=== PATIENT | male | born 1960 | race African-American/Black ===

== ENCOUNTER 2020-06-21 08:05 | Emergency (ER) | payer MEDICARE, MEDICAID ==
[~2020-06-21 08:05] MED LIST: BACTROBAN21 EX; CIPROFLOXACN500 MG PO; KENALOG15 G1 EX; NO MEDS; TRIAMCINOLON0.13 EX
[2020-06-21 10:21] LABS: IMMATURE GRANULOCYTES 0.6 % (0.0-5.0); MEAN CORPUSCULAR HGB 22.5 pG CALC (26.0-32.0); MEAN CORPUSCULAR HGB CONC 28.7 g/dL CAL (32.0-36.0); NEUT# 6.31 thou/uL (1.82-7.42); RED BLOOD COUNT 3.83 mill/uL (4.70-6.10); RED CELL DISTRI WIDTH 15.3 % (11.5-15.5)
[2020-06-21 10:22] LABS: HEMOGLOBIN 8.6 g/dl (14.0-18.0); MEAN CELL VOLUME 78.3 fL CALC (80.0-100.0)
[2020-06-21 10:42] LABS: ALKALINE PHOSPHATASE 142 u/l (38-126); ANION GAP 14 (6-22 (CALC)); BILIRUBIN, TOTAL 0.4 mg/dL (0.0-1.4); BUN 8 mg/dL (8-23); BUN/CREATININE RATIO 10 (12-20 (CALC)); CARBON DIOXIDE 25 mmol/l (22-30); CHLORIDE 101 mmol/l (95-108); CREATININE 0.9 mg/dL (0.7-1.3); GFR > 60 ML/MIN (>=60 (CALC)); GFR FOR AFR.AMER. > 60 ML/MIN (>=60 (CALC)); POTASSIUM 3.6 mmol/l (3.5-5.1); SGOT/AST 18 u/l (19-48); SODIUM 136 mmol/l (137-146); TOTAL PROTEIN 8.3 g/dL (6.3-8.2)
[2020-06-21 12:44] LABS: PROTHROMBIN TIME 10.5 SECONDS (9.0-12.5)
[2020-06-21 13:41] VITALS: BP 115/75
== END 2020-06-21 13:30 | disposition short-term general hospital (02) ==
LOC: ED 08:05
PROVIDERS: Emergency Medicine
DX: I82.422 Acute embolism and thrombosis of left iliac vein (principal); I82.412 Acute embolism and thrombosis of left femoral vein; I82.442 Acute embolism and thrombosis of left tibial vein; I26.99 Other pulmonary embolism without acute cor pulmonale; F79 Unspecified intellectual disabilities; Z87.820 Personal history of traumatic brain injury
CPT/HCPCS: J1644; Q9967

== ENCOUNTER 2020-06-26 19:54 | Emergency (ER) | payer MEDICARE, MEDICAID ==
[~2020-06-26] VITALS: Ht 162.6 cm; Wt 60.0 kg
[2020-06-26 20:28] VITALS: BP 141/78
[2020-06-26] MEDS ORDERED: TAMSULOSIN0.4 MG PO (20:31)
[2020-06-26] MEDS ORDERED: ELIQUIS5 MG PO (20:31)
[2020-06-26] MEDS ORDERED: FEROSUL325 MG PO (20:33)
== END 2020-06-26 20:34 | disposition home or self-care (01) ==
LOC: ED 19:54
DX: R60.0 Localized edema (principal); Z86.711 Personal history of pulmonary embolism; Z79.01 Long term (current) use of anticoagulants; Z87.820 Personal history of traumatic brain injury

== ENCOUNTER 2021-09-21 11:26 | Observation (INO) | payer MEDICARE, MEDICAID ==
[~2021-09-21] VITALS: Ht 162.6 cm; Wt 56.8 kg
[~2021-09-21 11:26] MED LIST changes: +ELIQUIS5 MG PO; +FEROSUL325 MG PO; +TAMSULOSIN0.4 MG PO
--- NOTE | 2021-09-21 11:27 | NUR ---
PT TO TRIAGE ROOM AT THIS TIME
[2021-09-21 12:30] LABS: HEMATOCRIT 28.6 % (39.0-50.0); HEMOGLOBIN 8.1 g/dl (14.0-18.0); IMMATURE GRANULOCYTES 0.4 % (0.0-5.0); MEAN CELL VOLUME 74.3 fL CALC (80.0-100.0); MEAN CORPUSCULAR HGB CONC 28.3 g/dL CAL (32.0-36.0); NEUT# 5.5 thou/uL (1.82-7.42); RED BLOOD COUNT 3.85 mill/uL (4.70-6.10); RED CELL DISTRI WIDTH 18.5 % (11.5-15.5)
[2021-09-21 12:34] LABS: ALKALINE PHOSPHATASE 128 u/l (38-126); ANION GAP 10 (6-22 (CALC)); BUN 10 mg/dL (8-23); BUN/CREATININE RATIO 11 (12-20 (CALC)); CARBON DIOXIDE 27 mmol/l (22-30); CHLORIDE 108 mmol/l (95-108); CREATININE 0.9 mg/dL (0.7-1.3); GFR FOR AFR.AMER. > 60 ML/MIN (>=60 (CALC)); GFR OTHER RACES > 60 ML/MIN (>=60 (CALC)); POTASSIUM 3.9 mmol/l (3.5-5.1); SGOT/AST 27 u/l (19-48); SODIUM 142 mmol/l (137-146); TOTAL PROTEIN 7.4 g/dL (6.3-8.2)
[2021-09-21 12:42] LABS: ALBUMIN 3.4 g/dL (3.2-5.0); BILIRUBIN, TOTAL 0.1 mg/dL (0.0-1.4)
--- NOTE | 2021-09-21 13:24 | NUR ---
PT IN ROOM ON MONITOR AWAITING ADMISSION, WILL CONT TO [id number].
[2021-09-21 13:25] VITALS: BP 125/74
--- NOTE | 2021-09-21 13:37 | NUR ---
PT TO BE ADMITTED
[2021-09-21 14:00] VITALS: BP 106/70
[2021-09-21 15:00] VITALS: BP 110/72
[2021-09-21 16:00] VITALS: BP 112/75
--- NOTE | 2021-09-21 16:04 | NUR ---
PT PENDING ADMISSION.
--- NOTE | 2021-09-21 16:12 | NUR ---
REPORT CALLED TO BRITT JAMES.
[2021-09-21 16:30] VITALS: BP 114/73
--- NOTE | 2021-09-21 16:38 | NUR ---
Admission Note Report Given to: BRITT JAMES Transported by: Wheelchair X Stretcher Transported with: X Nurse Transporter X Patent IV O2 X Flour Inspector Location: ICU X MS2
--- NOTE | 2021-09-21 17:53 | NUR ---
RECEIVE PAT[facility] PATIENT WITH COGNITIVE DEFICIT. I CALL FAMILY MEMBER AND COMPLETE ADMISSION. PT COVID POSITIVE IS EDUCATED ABOUD ADMISSION AND MEDICATIONS BUT DOES NOT SHOW UNDERSTAND. FALL AND SAFETY PRECAUTIONS IN PLACE. CALL LIGHT WITHIN REACH.
--- NOTE | 2021-09-21 19:30 | NUR ---
PATIENT RESTING IN BED AT THIS TIME. AWAKE ALERT AND ORIENTED TO PERSON AND BIRTHDATE ONLY. FLAT AFFECT. WATCHING TV. IV SITE TO [facility] IS INTACT AND HEALTHY AT THIS TIME. TELE MONITOR IN PLACE-LAST READING WAS SR-75. PATIENT ON ISOLATION FOR COVID. HERE FOR DVT OF RLE. SIDERAILS ARE PADDED FOR SEIZURE PRECAUTIONS. ON ISOLATION FOR COVID. SAFETY PRECAUTIONS REINFORCED. CALL LIGHT IN REACH. WILL CONT TO MONITOR.
[2021-09-21 19:46] VITALS: BP 116/70
[2021-09-22] VITALS (7 sets, daily range): BP systolic 95–131; BP diastolic 52–81
--- NOTE | 2021-09-22 00:09 | NUR ---
RESTING IN BED AT THIS TIME WITH EYES CLOSED. RESPS ARE EVEN AND UNLABORED. TELE MONITOR IN PLACE. SALINE LOCK TO RAC INTACT. SIDERAILS PADDED FOR SEIZURE PRECAUTIONS. CALL LIGHT IN REACH. WILL CONT TO MONTIOR.
--- NOTE | 2021-09-22 04:23 | NUR ---
PATIENT RESTING IN BED WITH EYES CLOSED. RESPS ARE EVEN AND UN LABORED. TELE MONITOR IN PLACE. IV SITE TO RAC INTACT. CALL LIGHT IN REACH. WILL CONT TO MONITOR.
[2021-09-22 06:51] LABS: HEMATOCRIT 27.2 % (39.0-50.0); HEMOGLOBIN 7.8 g/dl (14.0-18.0); MEAN CELL VOLUME 74.3 fL CALC (80.0-100.0); MEAN CORPUSCULAR HGB 21.3 pG CALC (26.0-32.0); MEAN CORPUSCULAR HGB CONC 28.7 g/dL CAL (32.0-36.0); RED BLOOD COUNT 3.66 mill/uL (4.70-6.10); RED CELL DISTRI WIDTH 18.6 % (11.5-15.5)
[2021-09-22 07:28] LABS: BUN 9 mg/dL (8-23); BUN/CREATININE RATIO 14 (12-20 (CALC)); CARBON DIOXIDE 25 mmol/l (22-30); CHLORIDE 108 mmol/l (95-108); CREATININE 0.6 mg/dL (0.7-1.3); GFR FOR AFR.AMER. > 60 ML/MIN (>=60 (CALC)); GFR OTHER RACES > 60 ML/MIN (>=60 (CALC)); MAGNESIUM 2.3 mg/dL (1.6-2.3); SODIUM 140 mmol/l (137-146)
--- NOTE | 2021-09-22 07:50 | NUR ---
PT RESTING IN SEMI FOWLERS POSITION. PT A/OX2 AND MENTALLY DELAYED. ASSESSMENT COMPLETED. RESPIRATIONS EVEN AND UNLABORED ON ROOM AIR. LUNG SOUNDS DIMINISHED. HEART RHYTHM NORMAL WITH TELE IN PLACE. BOWEL SOUNDS ACTIVE.#20G RAC FLUSHED, SITE PATENT. SKIN INTACT. PT DENIES OF ANY ADDITIONAL NEEDS AT THSI TIME. ALL SAFTEY PRECAUTION ARE IN PLACE WITH CALL LIGHT IN REACH.SEIZURE PRECAUTIONS IN PLACE. BED ALARM ACTIVE.
[2021-09-22 07:54] LABS: ANION GAP 12 (6-22 (CALC)); POTASSIUM 4.7 mmol/l (3.5-5.1)
[2021-09-22] MEDS ORDERED: PHENYTOIN EX100 M1 PO (10:25)
[2021-09-22] MEDS ORDERED: LEVETIRACETAM500 MG PO (10:25)
--- NOTE | 2021-09-22 12:40 | NUR ---
PT EATING LUNCH IN SEMI FOWLERS POSITION. RESPIRATIONS EVEN AND UNLABORED ON ROOM AIR. #20G RAC DISLODGED. #20G LAC STARTED, SITE PATENT. TELE MONITORING IN PLACE. PT DENIES OF ANY DISCOMFORTS AT THIS TIME. ALL SAFTEY PRECAUTIONS ARE IN PLACE WITH CALL LIGHT IN REACH
--- NOTE | 2021-09-22 16:06 | NUR ---
MORTGAGE COLLECTOR ASSISTED PT WITH CLEANING UP WHILE IN CHAIR. NEW LINEN PROVIDED. TELE MONITORING IN PLACE. #20G LAC PATENT. PT ASSISTED BACK INTO BED. PT DENIES OF ANY ADDITIONAL NEEDS. ALL SAFETY PRECAUTIONS ARE IN PLACE WITH CALL LIGHT IN REACH. BED ALARM ACTIVE.
--- NOTE | 2021-09-22 20:00 | NUR ---
PATIENT RESTING IN BED WATCHING TV. AWAKE ALERT AND ORIENTED TO PERSON AND PLACE-PATIENT DOES KNOW HIS BIRTHDATE. NO COMPLAINTS AT THIS TIME. TELE MONITOR IN PLACE-LAST READING WAS SR-90.IV SITE TO LEFT AC INTACT AND FLUSHES FREELY. BED ALARM IN PLACE FOR PATIENT SAFETY. SAFETY PRECAUTIONS REINFORCED. CALL LIGHT IN REACH. WILL CONT TO MONITOR.
--- NOTE | 2021-09-22 23:43 | NUR ---
RESTING IN BED WITH EYES CLOSED. RESPS ARE EVEN AND UNLABORED. TELE MONITOR IN PLACE. ON ISOLATION FOR COVID. BED ALARM IN PLACE FOR PATIENT SAFETY. CALL LIGHT IN REACH. WILL CONT TO MONITOR.
[2021-09-23 00:11] VITALS: BP 103/69
--- NOTE | 2021-09-23 02:27 | NUR ---
APPEARS SLEEPING WITH EYES CLOSED. RESPS ARE EVEN AND UNLABORED. TELE MONITOR IN PLACE. BED ALARM IN PLACE FOR PATIENT SAFETY. CALL LIGHT IN REACH. WILL CONT TO MONITOR.
[2021-09-23 04:49] VITALS: BP 122/74
--- NOTE | 2021-09-23 05:54 | NUR ---
PATIENT APPEARS SLEEPING WITH EYES CLOSED. RESPS ARE EVEN AND UNLABORED. TELE MONITOR IN PLACE-LAST READING WAS SR-76. SALINE LOCK TO LEFT AC INTACT. BED ALARM IN PLACE FOR PATIENT SAFETY. CALL LIGHT IN REACH. WILL CONT TO MONITOR.
[2021-09-23 06:22] VITALS: BP 116/68
[2021-09-23 06:49] LABS: HEMOGLOBIN 7.4 g/dl (14.0-18.0); IMMATURE GRANULOCYTES 0.3 % (0.0-5.0); MEAN CELL VOLUME 74.3 fL CALC (80.0-100.0); MEAN CORPUSCULAR HGB 21.1 pG CALC (26.0-32.0); MEAN CORPUSCULAR HGB CONC 28.5 g/dL CAL (32.0-36.0); NEUT# 3.95 thou/uL (1.82-7.42); RED BLOOD COUNT 3.5 mill/uL (4.70-6.10); RED CELL DISTRI WIDTH 18.6 % (11.5-15.5)
--- NOTE | 2021-09-23 07:00 | NUR ---
PT RESTING WATCHING TV. STATES IN NO PAIN. BREATHING EVEN AN DUNLABORED. ON RA. NO DISTRESS NOTED. TELE INPLACE, CONTINOUS MONITORING PER ED. FALL/SAFTEY PRECAUTION IN PLACE. CALL LIGHTWITHIN REACH
[2021-09-23 07:21] LABS: ANION GAP 11 (6-22 (CALC)); BUN 10 mg/dL (8-23); BUN/CREATININE RATIO 12 (12-20 (CALC)); CARBON DIOXIDE 26 mmol/l (22-30); CHLORIDE 107 mmol/l (95-108); CREATININE 0.8 mg/dL (0.7-1.3); GFR FOR AFR.AMER. > 60 ML/MIN (>=60 (CALC)); GFR OTHER RACES > 60 ML/MIN (>=60 (CALC)); MAGNESIUM 2.1 mg/dL (1.6-2.3); POTASSIUM 4.7 mmol/l (3.5-5.1); SODIUM 139 mmol/l (137-146)
--- NOTE | 2021-09-23 09:30 | NUR ---
PT RESTING WATCHING TV. PT IS ALERT TO PERSON ABLE TO TELL ME FULL NAME BUT UNABLE TO SAY PLACE/TIME. IV 20G RAC FLUSHED. ASSESSMENT ALLOWED. BREATHING EVEN AND UNLABORED. TELE MONITOR INPLACE. CONTINOUS MONITORING PER ED. ABBLE TO TAKE PO MEDCATIONS. FALL/SAFTEY PRECAUTION IN PLACE. CALL LIGHT WITHIN REACH.
[2021-09-23 11:04] VITALS: BP 121/66
--- NOTE | 2021-09-23 13:00 | NUR ---
PT RESTING IN ROOM WATCHING TV. NO DISTRESS NOTED. IV PATENT. TELE MONTIOR IN PLACE. CONTINOUS MONITORING PER ED FALL/SAFTEY PRECAUTION IN PLACE. CALL LIGHT WITHIN REACH
[2021-09-23 15:48] VITALS: BP 92/49
[2021-09-23 18:29] LABS: HEMATOCRIT 24.9 % (39.0-50.0); HEMOGLOBIN 7.2 g/dl (14.0-18.0)
--- NOTE | 2021-09-23 19:30 | NUR ---
PATIENT RESTING IN BED AT THIS TIME WATCHING TV. AWAKE ALERT AND ORIENTED TO PERSON AND PLACE. PATIENT FOR TRANFER TO [facility] FOR GI BLEED AND IVF FILTER. AWAITING CALL BACK FROM [facility] CALL CENTER FOR PATIENT ROOM. PATIENT WITH PROTONIX GTT IN PLACE VIA LEFT AC SITE AT 10CC/HR. SITE IS HEALTHY AT THIS TIME. TELE MONITOR IN PLACE-LAST READING SR-80'S. PATIENT ON ISOLATION FOR COVID. O2 SATS ARE 99% ON RA. PATIENT ASSISTED TO THE BR TO VOID USING THE WALKER-PATIENT IS VERY UNSTEADY ON HIS FEET. ASSISTED BACK TO BED. BED ALARM IN PLACE FOR PATIENT SAFETY. CALL LIGHT IN REACH. WILL CONT TO MONITOR.
[2021-09-23 19:32] VITALS: BP 103/60
--- NOTE | 2021-09-23 23:28 | NUR ---
PATIENT RESTING IN BED WITH BED ALARM IN PLACE FOR PATIENT SAFETY. PROTONIX GTT CONT AT 10CC/HR. EYES ARE CLOSED AND RESPS ARE EVEN AND UNLABORED. TELE MONITOR IN PLACE. CALL LIGHT IN REACH. WILL CONT TO MONITOR.
[2021-09-24] VITALS (7 sets, daily range): BP systolic 104–123; BP diastolic 60–67
[2021-09-24 00:39] LABS: HEMATOCRIT 23.8 % (39.0-50.0)
--- NOTE | 2021-09-24 01:00 | NUR ---
RECIEVED CALL FROM LAB [facility] WAS 7.0 LAST BLOOD DRAW. WILL CONT TO MONITOR. NEXT H&H AT 0600.
--- NOTE | 2021-09-24 04:00 | NUR ---
PATIENT RESTING IN BED-APPEARS SLEEPING WITH EYES CLOSED. RESPS ARE EVEN AND UNLABORED. PROTONIX GTT INFUSING VIA LEFT AC SITE AT 10CC/HR. VOIDING QS CLEAR YELLOW URINEIN URINAL. NO BLEEDING NOTED TONIGHT. NO CALLS NOTED RECIEVED FROM [facility] TONIGHT. BED ALARM IN PLACE FOR PATIENT SAFETY. CALL LIGHT IN REACH. WILL CONT TO MONITOR.
[2021-09-24 05:48] LABS: HEMATOCRIT 25.7 % (39.0-50.0); HEMOGLOBIN 7.5 g/dl (14.0-18.0)
[2021-09-24 05:50] LABS: HEMATOCRIT 26.2 % (39.0-50.0); HEMOGLOBIN 7.4 g/dl (14.0-18.0); IMMATURE GRANULOCYTES 0.3 % (0.0-5.0); MEAN CELL VOLUME 75.1 fL CALC (80.0-100.0); MEAN CORPUSCULAR HGB 21.2 pG CALC (26.0-32.0); MEAN CORPUSCULAR HGB CONC 28.2 g/dL CAL (32.0-36.0); NEUT# 4.49 thou/uL (1.82-7.42); RED BLOOD COUNT 3.49 mill/uL (4.70-6.10); RED CELL DISTRI WIDTH 18.7 % (11.5-15.5)
[2021-09-24 06:07] LABS: ALKALINE PHOSPHATASE 116 u/l (38-126); ANION GAP 11 (6-22 (CALC)); BUN 8 mg/dL (8-23); BUN/CREATININE RATIO 11 (12-20 (CALC)); CARBON DIOXIDE 26 mmol/l (22-30); CHLORIDE 107 mmol/l (95-108); CREATININE 0.7 mg/dL (0.7-1.3); GFR FOR AFR.AMER. > 60 ML/MIN (>=60 (CALC)); GFR OTHER RACES > 60 ML/MIN (>=60 (CALC)); POTASSIUM 4.5 mmol/l (3.5-5.1); SGOT/AST 17 u/l (19-48); SODIUM 139 mmol/l (137-146); TOTAL PROTEIN 6.4 g/dL (6.3-8.2)
--- NOTE | 2021-09-24 08:22 | NUR ---
PT RESTING IN SEMI FOWLERS POSITION. PT A/OX3. ASSESSMENT COMPLETED. RESPIRATIONS EVEN AND UNLABORED ON ROOM AIR. LUNG SOUNDS CLEAR. HEART RHYTHM NORMAL WITH TELE IN PLACE. BOWEL SOUNDS ACTIVE. #20G LAC INFUSING WITH PROTONIX DRIP, SITE REMAINS HEALTHY. SKIN INTACT. PT DENIES OF ANY PAINS OR DISCOMFORTS. ALL SAFTEY PRECAUTIONS IN PLACE WITH CALL LIGHT IN REACH. SEIZURE PRECAUTIONS. BED ALARM ACTIVE.
--- NOTE | 2021-09-24 09:08 | NUR ---
SISTER CALLED AND UPDATED ON PT STATUS AND POC. VERBLAIZED UNDERSTANDING. VERBAL CONSENT RECIEVED FOR BLOOD TRANSFUSION
--- NOTE | 2021-09-24 10:13 | NUR ---
VERBAL CONSENT GIVEN BY JOVANI FOR TRANSFER TO [facility]. WITNESSED BY LYLE SMITH.
--- NOTE | 2021-09-24 10:39 | NUR ---
BLOOD STARTED BY JACOB SOLORZANO. VSS. #22G DWIGHT REMAINS PATENT. PT EDUTAED ON S/S OF REACTIONS. PT VERBLAIZED UNDERSTANDING. PRODUCER ARBORIST MANAGER TO REMAIN AT BEDSIDE TO MONITOR.
--- NOTE | 2021-09-24 10:54 | NUR ---
INITAL 15 COMPLETED. BP 106/60, HR 70, O2 100% ON ROOM AIR. RESPIRATIONS EVEN AND UNLABORED. NO S/S OF REACTION. WILL CONTINUE TO MONITOR.
--- NOTE | 2021-09-24 11:36 | NUR ---
BP 104/61, HR 7, O2 100% ON ROOM AIR. RESPIRATIONS EVEN AND UNLABORED ON ROOM AIR. TELE MONITORING IN PLACE. IV SITE PATENT.BLOOD AND PROTONIX INFUSING WITH EASE. PT DENIES OF ANY PAINS OR DISCOMFORTS AT THIS TIME. ALL SAFTEY PRECAUTIONS ARE IN PLACE WITH CALL LIGHT IN REACH. BED ALARM ACTIVE.
--- NOTE | 2021-09-24 12:22 | NUR ---
PT TRANSFERED TO [facility] WITH IV SITE PATENT. BLOOD AND PROTONIX INFUSING WITH EASE.
--- NOTE | 2021-09-24 12:24 | NUR ---
REPORT GIVEN TO JACOB OSMAN AT [facility]. SAHIL VIEYRA AND INFORMED OF PT TRANSFER.
== END 2021-09-24 12:22 | disposition short-term general hospital (02) ==
LOC: ED 11:26 → ED-I 13:34 → MS2 13:39 → ED 13:39 → MS2 13:40
PROVIDERS: Family Medicine; Nurse Practitioner; ADMIT Internal Medicine; ATTEND Internal Medicine
PROC: 30233N1 Transfusion of Nonautologous Red Blood Cells into Peripheral Vein, Percutaneous Approach (ICD-10-PCS; principal; 2021-09-24)
DX: I82.431 Acute embolism and thrombosis of right popliteal vein (principal); I82.811 Embolism and thrombosis of superficial veins of right lower extremity; G40.909 Epilepsy, unspecified, not intractable, without status epilepticus; D50.0 Iron deficiency anemia secondary to blood loss (chronic); K92.2 Gastrointestinal hemorrhage, unspecified; U07.1 COVID-19; N40.0 Benign prostatic hyperplasia without lower urinary tract symptoms; R62.50 Unspecified lack of expected normal physiological development in childhood; Z87.820 Personal history of traumatic brain injury; Z86.711 Personal history of pulmonary embolism; Z86.718 Personal history of other venous thrombosis and embolism; M79.89 Other specified soft tissue disorders; I82.411 Acute embolism and thrombosis of right femoral vein
CPT/HCPCS: J1650; J1756; J3420; P9016; S0164